=== PATIENT | female | born 1965 | race Hispanic/Latino ===

== ENCOUNTER 2019-11-08 08:39 | Emergency (ER) | payer SELFPAY ==
[2019-11-08] MEDS ORDERED: ONDANSETRON 4 MG (ODT) TAB ONE (09:34)
[2019-11-08] MEDS ORDERED: HYDROCODONE/APAP 5/325 MG TAB ONE (09:34)
[2019-11-08] MEDS ORDERED: TETANUS & DIPHTHERIA TOX,ADULT 0.5 ML VIAL ONE (09:35)
[2019-11-08] MEDS ORDERED: LIDOCAINE 1% 20 ML MDV ONE (10:31)
--- NOTE | 2019-11-08 10:31 | RAD REPORT ---
EXAM DESCRIPTION: US - Extremity Nonvascular Complete - 11/08/2019 10:00 am CLINICAL HISTORY: abscess eval depth;Swelling COMPARISON: No comparisons FINDINGS: Sonographic evaluation was performed of a superficial area of pain and swelling in the rig ht abdomen. Immediately deep to the skin surface there is a 3.5 x 1.9 x 3.6 centimeter heterogeneous hypoechoic c ollection. Small abscess would be most likely given the history. IMPRESSION: A 3.6 centimeter oval hypoechoic collection is present immediately deep to the skin surf matt at the area of concern. Small abscess is the favored diagnosis.
[2019-11-08] MEDS ORDERED: LIDOCAINE 1% MPF 30 ML VIAL ONE (10:37)
[2019-11-08] MEDS ORDERED: FENTANYL CITR 100 MCG/2 ML ONE (10:42)
--- NOTE | 2019-11-08 10:43 | EDPHYS ---
Physician Documentation [facility] Name: Linda Gonzalez Age: 54 yrs Sex: Female : 1965 Arrival Date: 11/08/2019 Time: 08:40 Bed 8 Private MD: ED Physician Servando Garrison HPI: 11/07 09:14 This 54 yrs old Female presents to ER via Ambulatory with complaints of Insect snw Bite. 09:14 Onset: The symptoms/episode began/occurred suddenly, 3 day(s) ago, and became snw persistent. The patient has not experienced similar symptoms in the past. The patient has not recently seen a physician, and does not have an established primary care provider. pt states she thought she was bitten by an insect, area to right lower abdomen with erythema, induration, fluctuant, necrotic center post bumping area on cabinet. Historical: - Allergies: 09:10 No Known Allergies; iw - Home Meds: 09:10 None [Active]; iw - PMHx: 09:10 None; iw - PSHx: 09:10 Cholecystectomy; iw - Immunization history:: Adult Immunizations not up to date, Last tetanus immunization: unknown. - Social history:: Smoking status: Patient reports the use of cigarette tobacco products, smokes one-half pack cigarettes per day. ROS: 09:13 Constitutional: Negative for fever, chills, and weight loss, Eyes: Negative for injury, snw pain, redness, and discharge, ENT: Negative for injury, pain, and discharge, Neck: Negative for injury, pain, and swelling, Cardiovascular: Negative for chest pain, palpitations, and edema, Respiratory: Negative for shortness of breath, cough, wheezing, and pleuritic chest pain, Back: Negative for injury and pain, : Negative for injury, bleeding, discharge, and swelling, MS/Extremity: Negative for injury and deformity, Skin: Negative for injury, rash, and discoloration, Neuro: Negative for headache, weakness, numbness, tingling, and seizure, Psych: Negative for depression, anxiety, suicide ideation, homicidal ideation, and hallucinations. 09:13 Abdomen/GI: Positive for of the right lower quadrant, "insect bite". Exam: 09:12 Constitutional: This is a well developed, well nourished patient who is awake, alert, snw and in no acute distress. Head/Face: Normocephalic, atraumatic. Eyes: Pupils equal round and reactive to light, extra-ocular motions intact. Lids and lashes normal. Conjunctiva and sclera are non-icteric and not injected. Cornea within normal limits. Periorbital areas with no swelling, redness, or edema. ENT: Nares patent. No nasal discharge, no septal abnormalities noted. Tympanic membranes are normal and external auditory canals are clear. Oropharynx with no redness, swelling, or masses, exudates, or evidence of obstruction, uvula midline. Mucous membranes moist. Neck: Trachea midline, no thyromegaly or masses palpated, and no cervical lymphadenopathy. Supple, full range of motion without nuchal rigidity, or vertebral point tenderness. No Meningismus. Chest/axilla: Normal chest wall appearance and motion. Nontender with no deformity. No lesions are appreciated. Cardiovascular: Regular rate and rhythm with a normal S1 and S2. No gallops, murmurs, or rubs. Normal PMI, no JVD. No pulse deficits. Respiratory: Lungs have equal breath sounds bilaterally, clear to auscultation and percussion. No rales, rhonchi or wheezes noted. No increased work of breathing, no retractions or nasal flaring. Abdomen/GI: Soft, non-tender, with normal bowel sounds. No distension or tympany. No guarding or rebound. No evidence of tenderness throughout. Back: No spinal tenderness. No costovertebral tenderness. Full range of motion. MS/ Extremity: Pulses equal, no cyanosis. Neurovascular intact. Full, normal range of motion. Neuro: Awake and alert, GCS 15, oriented to person, place, time, and situation. Cranial nerves II-XII grossly intact. Motor strength 5/5 in all extremities. Sensory grossly intact. Cerebellar exam normal. Normal gait. Psych: Awake, alert, with orientation to person, place and time. Behavior, mood, and affect are within normal limits. 09:12 Skin: Appearance: normal except for affected area, lesion(s), noted, and can be described as erythematous, necrotic, raised, tender, located on the right lower quadrant. Vital Signs: 09:08 BP 161 / 94; Pulse 75; Resp 16 S; Temp 98.5(TE); Pulse Ox 98% on R/A; Weight 68.04 kg; iw Height 5 ft. 2 in. (157.48 cm); Pain 6/10; 11:00 BP 147 / 91; Pulse 67; Resp 15; Pulse Ox 99% ; jl7 09:08 Body Mass Index 27.44 (68.04 kg, 157.48 cm) iw Procedures: 10:45 I \\T\\ D: Incision and drainage was performed for an abscess of the right abdomen Prepped snw with elizabeth. Anesthetized with 7 ml's 1% Lidocaine. Incised with #11 blade. Drained large amount purulent fluid. serosanguinous fluid. Loculations removed. Abscess cavity explored. Packed with iodoform gauze, Dressing: sterile 4x4 gauze, the patient tolerated the procedure well. MDM: 08:58 Patient medically screened. snw 10:45 Data reviewed: vital signs, nurses notes. Data interpreted: Pulse oximetry: on room air snw is 98 %. Interpretation: normal. Counseling: I had a detailed discussion with the patient and/or guardian regarding: the historical points, exam findings, and any diagnostic results supporting the discharge/admit diagnosis, the need for outpatient follow up, to return to the emergency department if symptoms worsen or persist or if there are any questions or concerns that arise at home. Response to treatment: the patient's symptoms have markedly improved after treatment. Special discussion: I have referred the patient to see his PCP for further evaluation of high blood pressure. I discussed in detail with the patient the higher chance of wound infection based on his presenting history. Based on the history and exam findings, there is no indication for further emergent testing or inpatient evaluation. I discussed with the patient/guardian the need to see the primary care provider for further evaluation of the symptoms. 11/07 09:31 Order name: Extremity Nonvascular Complete; Complete Time: 10:39 EDMS 11/07 10:11 Order name: Suture Tray Setup; Complete Time: 10:23 snw Administered Medications: :25 Drug: Clindamycin 300 mg Route: PO; aa5 11:03 Follow up: Response: No adverse reaction : Drug: [place] 5 mg-325 mg 1 tabs Route: PO; aa5 10:40 Follow up: Response: No adverse reaction; Pain is unchanged, physician notified jl7 09:25 Drug: Tetanus-Diphtheria Toxoid Adult 0.5 ml {Orthotic Technician: [employer]. Exp: aa5 04/10/2022. Lot #: [id number]. } Route: IM; Site: right deltoid; 11:03 Follow up: Response: No adverse reaction 09:25 Drug: Zofran (Ondansetron) 4 mg Route: PO; aa5 11:04 Follow up: Response: No adverse reaction 10:25 Drug: Lidocaine (1 %) 1 vials {Note: administered by JENNIE Groves.} Volume: 20 ml; Route: jl7 Infiltration; 11:05 Follow up: Response: No adverse reaction 10:32 Drug: fentaNYL (PF) 50 mcg Route: IM; Site: left deltoid; 11:05 Follow up: Response: No adverse reaction; Pain is decreased Disposition: 13:46 Co-signature as Attending Physician, Servando Garrison MD. rn Disposition: 11/08/19 10:42 Discharged to Home. Impression: Subcutaneous abscess with overlying cellulitis to right low abdomen. - Condition is Stable. - Discharge Instructions: Skin Abscess, Cellulitis, Adult, Incision and Drainage, VIS, Tetanus, Diphtheria (Td) - [facility], Wound Packing. - Prescriptions for Clindamycin HCl 300 mg Oral Capsule - take 1 capsule by ORAL route every 6 hours for 10 days; 40 capsule. Mobic 7.5 mg Oral Tablet - take 1 tablet by ORAL route once daily take with food; 20 tablet. Tylenol- Codeine #3 300-30 mg Oral Tablet - take 2 tablets by ORAL route every 6 hours As needed; 20 tablet. - Work release form, Medication Reconciliation Form, Thank You Letter, Antibiotic Education, Prescription Opioid Use, Family Work Release form. - Follow up: Emergency Department; When: 2 - 3 days; Reason: Recheck today's complaints, Continuance of care, Re-evaluation by your physician. Signatures: Dispatcher [employer] Yaneli Crow, ADRIA CASE CONSULTANT-Csnw Pema David, RN Servando Frias MD MD rn Calderon, Audri, RN RN aa5 Yolette Jackson RN RN jl7 Corrections: (The following items were deleted from the chart) 09:31 09:13 Extrmty Nonvasular Limited+US.RAD.BRZ ordered. EDMO EDMS 11:09 10:42 11/08/2019 10:42 Discharged to Home. Impression: Subcutaneous abscess with jl7 overlying cellulitis to right low abdomen. Condition is Stable. Forms are Medication Reconciliation Form, Thank You Letter, Antibiotic Education, Prescription Opioid Use. Follow up: Emergency Department; When: 2 - 3 days; Reason: Recheck today's complaints, Continuance of care, Re-evaluation by your physician. w
--- NOTE | 2019-11-08 10:43 | ER ---
Nurse's Notes [facility] Name: Linda Gonzalez Age: 54 yrs Sex: Female : 1965 Arrival Date: 11/08/2019 Time: 08:40 Bed 8 Private MD: Diagnosis: Subcutaneous abscess with overlying cellulitis to right low abdomen Presentation: 11/07 09:00 Chief complaint: Patient states: abscess to RLQ X 3 days, she bumped it yesterday and iw it turned black. Coronavirus screen: At this time, the client does not indicate any symptoms associated with coronavirus-19. Ebola Screen: Patient negative for fever greater than or equal to 101.5 degrees Fahrenheit, and additional compatible Ebola Virus Disease symptoms Patient denies exposure to infectious person. Patient denies travel to an Ebola-affected area in the 21 days before illness onset. No symptoms or risks identified at this time. Initial Sepsis Screen: Does the patient meet any 2 criteria? No. Patient's initial sepsis screen is negative. Does the patient have a suspected source of infection?. Risk Assessment: Do you want to hurt yourself or someone else? Patient reports no desire to harm self or others. Onset of symptoms was November 06, 2019. 09:00 Method Of Arrival: Ambulatory iw 09:00 Acuity: EDSON 3 iw Historical: - Allergies: 09:10 No Known Allergies; iw - Home Meds: 09:10 None [Active]; iw - PMHx: 09:10 None; iw - PSHx: 09:10 Cholecystectomy; iw - Immunization history:: Adult Immunizations not up to date, Last tetanus immunization: unknown. - Social history:: Smoking status: Patient reports the use of cigarette tobacco products, smokes one-half pack cigarettes per day. Screenin:00 Abuse screen: Denies threats or abuse. Denies injuries from another. Nutritional jl7 screening: No deficits noted. Tuberculosis screening: No symptoms or risk factors identified. Fall Risk None identified. Assessment: 09:30 General: Appears in no apparent distress. uncomfortable, Behavior is cooperative, jl7 appropriate for age, anxious. Pain: Complains of pain in right lower quadrant Pain currently is 6 out of 10 on a pain scale. Neuro: Level of Consciousness is awake, alert, obeys commands, Oriented to person, place, time, situation. Cardiovascular: Patient's skin is warm and dry. Respiratory: Airway is patent Respiratory effort is even, unlabored, Respiratory pattern is regular, symmetrical. Derm: Skin abscess noted Skin is dry, Skin is pink, warm \T\ dry. Abscess located on right lower quadrant is golf ball sized, is hot to touch, is red, is raised. Vital Signs: 09:08 BP 161 / 94; Pulse 75; Resp 16 S; Temp 98.5(TE); Pulse Ox 98% on R/A; Weight 68.04 kg; iw Height 5 ft. 2 in. (157.48 cm); Pain 6/10; 11:00 BP 147 / 91; Pulse 67; Resp 15; Pulse Ox 99% ; jl7 09:08 Body Mass Index 27.44 (68.04 kg, 157.48 cm) iw ED Course: 08:40 Patient arrived in ED. ag5 08:58 [facility]eli Bowman [facility]-C [facility]. snw 08:58 Servando Garrison MD is Attending Physician. snw 09:08 Triage completed. iw 09:10 Arm band placed on. iw 09:30 Patient has correct armband on for positive identification. Placed in gown. Bed in low jl7 position. Call light in reach. Side rails up X 1. 10:00 Extremity Nonvascular Complete In Process Unspecified. EDMS 10:30 Assist provider with I \T\ D: of an abscess on right LQ Set up I\T\D tray. Performed by jl 7 Yaneli COVINGTON Wound packed. iodoform gauze, Dressing with ABD pad, Patient tolerated poorly. 10:30 Patient did not have IV access during this emergency room visit. jl7 11:09 Primary Nurse role handed off by Agnes Anguiano, RN jl7 11:09 Yolette Jackson, MARCELA is Primary Nurse. jl7 Administered Medications: 09:25 Drug: Clindamycin 300 mg Route: PO; aa5 11:03 Follow up: Response: No adverse reaction jl7 09:25 Drug: [place] 5 mg-325 mg 1 tabs Route: PO; aa5 10:40 Follow up: Response: No adverse reaction; Pain is unchanged, physician notified jl7 09:25 Drug: Tetanus-Diphtheria Toxoid Adult 0.5 ml {Transformation Manager: [employer]. Exp: aa5 04/10/2022. Lot #: [id number]. } Route: IM; Site: right deltoid; 11:03 Follow up: Response: No adverse reaction jl7 09:25 Drug: Zofran (Ondansetron) 4 mg Route: PO; aa5 11:04 Follow up: Response: No adverse reaction jl7 10:25 Drug: Lidocaine (1 %) 1 vials {Note: administered by JENNIE Groves.} Volume: 20 ml; Route: jl7 Infiltration; 11:05 Follow up: Response: No adverse reaction jl7 10:32 Drug: fentaNYL (PF) 50 mcg Route: IM; Site: left deltoid; jl7 11:05 Follow up: Response: No adverse reaction; Pain is decreased jl7 Outcome: 10:42 Discharge ordered by . fide 11:09 Discharged to home ambulatory. jl7 11:09 Condition: stable 11:09 Discharge instructions given to patient, family, Instructed on discharge instructions, follow up and referral plans. medication usage, Demonstrated understanding of instructions, follow-up care, medications, Prescriptions given X 3. 11:09 Patient left the ED. jl Signatures: Dispatcher [employer] EDMS Yaneli Bowman, CURRICULUM COUNSELOR-C CURRICULUM COUNSELOR-Csnw Pema David RN RN iw Agnes Anguiano, RN RN nancy5 Yolette Jackson RN RN jl7 Anitra Castorena 5 Corrections: (The following items were deleted from the chart) 11:04 10:40 fentaNYL (PF) 50 mcg IM in left deltoid jl7 jl7 12:40 08:52 Agnes Anguiano, RN is Primary Nurse. [email or web address] [email or web address]
[2019-11-08 11:15] VITALS: TEMP 98.5
[2019-11-08 11:17] VITALS: BP 147/91; O2SAT 99
== END 2019-11-08 11:09 | disposition home or self-care (01) ==
LOC: ER 08:39
PROC: 0J980ZZ Drainage of Abdomen Subcutaneous Tissue and Fascia, Open Approach (ICD-10-PCS; principal; 2019-11-08)
DX: L02.211 Cutaneous abscess of abdominal wall (principal); L03.311 Cellulitis of abdominal wall; F17.210 Nicotine dependence, cigarettes, uncomplicated; Z23 Encounter for immunization
CPT/HCPCS: 76881; 90471; 90714; 96372; 99284; J3010

== ENCOUNTER 2021-10-09 12:52 | Emergency (ER) | payer SELFPAY ==
[2021-10-09 13:32] LABS: Urine Blood 2+ (Negative); Urine Glucose Negative (Negative); Urine Protein 1+ (Negative)
[2021-10-09 13:48] LABS: Urine RBC 21-50 /HPF (None Seen); Urine WBC Clump Occasional /HPF (None Seen)
--- NOTE | 2021-10-09 14:19 | EDPHYS ---
Physician Documentation [facility] Name: Linda Gonzalez Age: 56 yrs Sex: Female : 1965 Arrival Date: 10/09/2021 Time: 12:53 Bed Waiting Private MD: ED Physician Duy Person HPI: 10/09 14:55 This 56 yrs old Female presents to ER via Ambulatory with complaints of kb Urinary Problem. 14:55 The patient presents with urinary symptoms, dysuria, frequency. Onset: The kb symptoms/episode began/occurred 3 day(s) ago. Modifying factors: The symptoms are alleviated by nothing, the symptoms are aggravated by urinating. Associated signs and symptoms: Pertinent positives: dysuria, urinary frequency. Severity of symptoms: At their worst the symptoms were moderate, in the emergency department the symptoms are unchanged. The patient has experienced similar episodes in the past, a few times. The patient has not recently seen a physician. Patient reports dark urine, burning with urination and urinary frequency that started 3 days ago. Denies fever. Historical: - Allergies: 13:21 No Known Allergies; iw - Home Meds: 13:21 None [Active]; iw - PMHx: 13:21 None; iw - PSHx: 13:21 None; iw - Immunization history:: Adult Immunizations up to date, Client reports having NOT received the Covid vaccine. - Social history:: Smoking status: Patient reports the use of cigarette tobacco products, smokes one-half pack cigarettes per day. ROS: 14:00 Constitutional: Negative for fever, chills, and weight loss. kb 14:55 : Positive for urinary symptoms, urinary frequency, burning with urination. kb 14:55 All other systems are negative. Exam: 14:55 Constitutional: This is a well developed, well nourished patient who is awake, alert, kb and in no acute distress. Head/Face: Normocephalic, atraumatic. ENT: Moist Mucous membranes Cardiovascular: Regular rate and rhythm with a normal S1 and S2. No gallops, murmurs, or rubs. No pulse deficits. Respiratory: Respirations even and unlabored. No increased work of breathing. Talking in full sentences Abdomen/GI: Soft, non-tender. No distention Back: No spinal tenderness. No costovertebral tenderness. Full range of motion. Skin: Warm, dry with normal turgor. Normal color. MS/ Extremity: Pulses equal, no cyanosis. Neurovascular intact. Full, normal range of motion. Neuro: Awake and alert, GCS 15, oriented to person, place, time, and situation. Moves all extremities. Normal gait. Psych: Awake, alert, with orientation to person, place and time. Behavior, mood, and affect are within normal limits. Vital Signs: 13:19 BP 166 / 89; Pulse 77; Resp 16; Temp 98.0(O); Pulse Ox 100% on R/A; Weight 68.04 kg iw (R); Height 5 ft. 3 in. (160.02 cm); Pain 0/10; 13:19 Body Mass Index 26.57 (68.04 kg, 160.02 cm) iw MDM: 13:21 Patient medically screened. kb 13:59 Data reviewed: vital signs, nurses notes. Data interpreted: Pulse oximetry: on room air kb is 100 %. Interpretation: normal. Counseling: I had a detailed discussion with the patient and/or guardian regarding: the historical points, exam findings, and any diagnostic results supporting the discharge/admit diagnosis, lab results, the need for outpatient follow up, a family practitioner, to return to the emergency department if symptoms worsen or persist or if there are any questions or concerns that arise at home. 10/09 13:21 Order name: Urine Microscopic Only; Complete Time: 13:52 kb 10/09 13:32 Order name: Urine Dipstick-Ancillary; Complete Time: 13:33 EDMS 10/09 13:21 Order name: Urine Dipstick-Ancillary (obtain specimen); Complete Time: 13:32 kb 10/09 13:52 Order name: Urine Culture EDMS Administered Medications: 14:38 Drug: Macrobid (nitrofurantoin) 100 mg Route: PO; iw 14:38 Follow up: Response: No adverse reaction iw Disposition: 16:33 Co-signature as Attending Physician, Duy Person MD I agree with the assessment and kdr plan of care. Disposition Summary: 10/09/21 14:18 Discharge Ordered Location: Home kb Condition: Stable kb Diagnosis - UTI/ Urinary tract infection, site not specified kb Followup: kb - With: Emergency Department - When: As needed - Reason: Worsening of condition Followup: kb - With: Private Physician - When: 2 - 3 days - Reason: Recheck today's complaints, Continuance of care, Re-evaluation by your physician Discharge Instructions: - Discharge Summary Sheet kb - Urinary Tract Infection, Adult, [id number] kb Forms: - Medication Reconciliation Form kb - Thank You Letter kb - Antibiotic Education kb - Prescription Opioid Use kb Prescriptions: - Macrobid 100 mg Oral Capsule - take 1 capsule by ORAL route every 12 hours for 10 days; 20 capsule; Refills: kb 0, Product Selection Permitted Signatures: Dispatcher [employer] EDMS Kelly Quick, CONCRETE POINTER-C Duy Barron MD MD kdr Williams, Irene RN RN iw
--- NOTE | 2021-10-09 14:19 | ER ---
Nurse's Notes [facility] Name: Linda Gonzalez Age: 56 yrs Sex: Female : 1965 Arrival Date: 10/09/2021 Time: 12:53 Bed Waiting Private MD: Diagnosis: UTI/ Urinary tract infection, site not specified Presentation: 10/09 13:19 Chief complaint: Patient states: I have a UTI. I have been having dark urine and iw burning for a few days. I was going to [facility] an appointment at [facility] [place] but they didn't have any openings. Coronavirus screen: At this time, the client does not indicate any symptoms associated with coronavirus-19. Ebola Screen: No symptoms or risks identified at this time. Initial Sepsis Screen: Does the patient meet any 2 criteria? No. Patient's initial sepsis screen is negative. Does the patient have a suspected source of infection? No. Patient's initial sepsis screen is negative. Risk Assessment: Do you want to hurt yourself or someone else? Patient reports no desire to harm self or others. Onset of symptoms was October 07, 2021. 13:19 Method Of Arrival: Ambulatory iw 13:19 Acuity: EDSON 4 iw Triage Assessment: 13:21 General: Appears in no apparent distress. comfortable, Behavior is calm, cooperative, iw appropriate for age. Pain: Denies pain. EENT: No deficits noted. No signs and/or symptoms were reported regarding the EENT system. Neuro: No deficits noted. Cardiovascular: No deficits noted. Respiratory: No deficits noted. GI: No deficits noted. No signs and/or symptoms were reported involving the gastrointestinal system. : Reports burning with urination, urinary frequency. Derm: No deficits noted. No signs and/or symptoms reported regarding the dermatologic system. Musculoskeletal: No deficits noted. No signs and/or symptoms reported regarding the musculoskeletal system. Historical: - Allergies: 13:21 No Known Allergies; iw - Home Meds: 13:21 None [Active]; iw - PMHx: 13:21 None; iw - PSHx: 13:21 None; iw - Immunization history:: Adult Immunizations up to date, Client reports having NOT received the Covid vaccine. - Social history:: Smoking status: Patient reports the use of cigarette tobacco products, smokes one-half pack cigarettes per day. Screenin:38 Abuse screen: Denies threats or abuse. Nutritional screening: No deficits noted. iw Tuberculosis screening: No symptoms or risk factors identified. Fall Risk None identified. Assessment: 14:38 Reassessment: No changes from previously documented assessment. Patient and/or family iw updated on plan of care and expected duration. Pain level reassessed. Patient is alert, oriented x 3, equal unlabored respirations, skin warm/dry/pink. Vital Signs: 13:19 BP 166 / 89; Pulse 77; Resp 16; Temp 98.0(O); Pulse Ox 100% on R/A; Weight 68.04 kg iw (R); Height 5 ft. 3 in. (160.02 cm); Pain 0/10; 13:19 Body Mass Index 26.57 (68.04 kg, 160.02 cm) iw ED Course: 12:53 Patient arrived in ED. am2 13:13 Kelly Quick FNP-C is [facility]. kb 13:13 Duy Person MD is Attending Physician. kb 13:21 Triage completed. iw 13:21 Arm band placed on right wrist. iw 13:33 Urine Microscopic Only Sent. em1 14:38 Patient has correct armband on for positive identification. iw 14:38 No provider procedures requiring assistance completed. Urine collected: clean catch iw specimen, cloudy. Patient did not have IV access during this emergency room visit. Administered Medications: 14:38 Drug: Macrobid (nitrofurantoin) 100 mg Route: PO; iw 14:38 Follow up: Response: No adverse reaction iw Medication: 14:38 VIS not applicable for this client. iw Outcome: 14:18 Discharge ordered by . kb 14:38 Discharged to home ambulatory. iw 14:38 Condition: good 14:38 Discharge instructions given to patient, Instructed on discharge instructions, follow up and referral plans. medication usage, Demonstrated understanding of instructions, follow-up care, medications, Prescriptions given X 1. 14:39 Patient left the ED. iw Signatures: Kelly Quick FNP-C FNP-Pema Bennett RN RN iw Milton Henry em1 Eileen Boucher am2
[2021-10-09] MEDS ORDERED: NITROFURAN MACRO 100 MG CAP PO ONE (14:47)
[2021-10-09 15:54] VITALS: BP 166/89; TEMP 98; O2SAT 100
== END 2021-10-09 14:39 | disposition home or self-care (01) ==
LOC: ER 12:52
DX: N39.0 Urinary tract infection, site not specified (principal); F17.210 Nicotine dependence, cigarettes, uncomplicated
CPT/HCPCS: 81003; 81015; 87086; 87088; 99283

== ENCOUNTER 2022-01-13 07:32 | Observation (INO) | payer SELFPAY ==
--- NOTE | 2022-01-13 08:05 | RAD REPORT ---
EXAM DESCRIPTION: CT - Ct Stroke Brain Wo Cont - 01/13/2022 7:55 am CLINICAL HISTORY: facial droop COMPARISON: No comparisons TECHNIQUE: Axial 5 millimeter thick images of the head were obtained without IV contrast. All CT scans are performed using dose optimization technique as appropriate and may include automated exposure control or mA/KV adjustment according to patient size. FINDINGS: No intracranial hemorrhage, mass, or cerebral edema. No acute infarction identifiable. No extra-axial fluid collections. Rico matter-white matter differentiation is preserved.Ventricles are normal. Cerebellar tonsils are low lying as a normal variant. No globe or orbital content abnormality . Visualized portions of the mastoid air cells, paranasal sinuses, and orbits are unremarkable. Findings were telephoned to Dr. Srinivasan 0800 hours. IMPRESSION: No CT evidence of acute intracranial process.
[2022-01-13 08:14] LABS: Absolute Lymphocytes (CBC) 1.8 K/uL (0.7-4.9); Hematocrit 42.7 % (36.0-45.0); Lymphocytes % 25.1 % (15.3-44.8); MCV 88.1 fL (80-100); RBC Red Blood Cell Count 4.84 M/uL (3.86-4.86)
[2022-01-13 08:17] LABS: Protime INR 1.09
--- NOTE | 2022-01-13 08:39 | ER ---
Nurse's Notes [facility] Name: Linda Gonzalez Age: 56 yrs Sex: Female : 1965 Arrival Date: 01/13/2022 Time: 07:39 Bed 6 Private MD: Diagnosis: Transient cerebral ischemic attack, unspecified;Facial weakness;Hyperglycemia, unspecified Presentation: 01/13 07:39 Chief complaint: EMS states: Pt reports R sided facial droop when she woke up at 0600 ph this morning, went to bed last night at 9 pm, no other deficits, equal uat tester and no weakness, facial droop resolved prior to arrival at ED, VSS for EMS, FSBG 230. Coronavirus screen: Vaccine status: Patient reports being unvaccinated. Ebola Screen: No symptoms or risks identified at this time. No acute neurological deficit is noted. The patients blood glucose was checked prior to arriving to the hospital and was found to be hyperglycemic. Initial Sepsis Screen: Does the patient meet any 2 criteria? No. Patient's initial sepsis screen is negative. Does the patient have a suspected source of infection? No. Patient's initial sepsis screen is negative. Risk Assessment: Do you want to hurt yourself or someone else? Patient reports no desire to harm self or others. Onset of symptoms was January 13, 2022. 07:39 Method Of Arrival: EMS: [facility] 07:39 Acuity: EDSON 3 ph Triage Assessment: 07:42 The onset of the patients symptoms was at an unknown time. General: Appears in no ph apparent distress. Behavior is calm, cooperative, appropriate for age. Pain: Denies pain. Neuro: Level of Consciousness is awake, alert, obeys commands, Oriented to person, place, time, situation, Sample Grader are equal bilaterally Moves all extremities. Speech is normal, Facial symmetry appears normal, Pupils are PERRLA, Intact. 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 Cardiovascular: Capillary refill < 3 seconds in bilateral fingers Patient's skin is warm and dry. Rhythm is sinus rhythm. Respiratory: Airway is patent Respiratory effort is even, unlabored. GI: No signs and/or symptoms were reported involving the gastrointestinal system. Derm: Skin is healthy with good turgor, Skin is pink, warm \T\ dry. Musculoskeletal: Circulation, motion, and sensation intact. Range of motion: intact in all extremities. 07:42 The onset of the patients symptoms was. ph Stroke Activation: Symptom onset > 6 hours Physician: Stroke Attending; Name: ; Notified At: ; Arrived At: Physician: Chief Stroke Resident; Name: ; Notified At: ; Arrived At: Physician: Stroke Resident; Name: ; Notified At: ; Arrived At: Physician: ED Attending; Name: ; Notified At: ; Arrived At: Physician: ED Resident; Name: ; Notified At: ; Arrived At: Historical: - Allergies: 07:42 No Known Allergies; ph - Home Meds: 07:42 None [Active]; ph - PMHx: 07:42 None; ph - Immunization history:: Adult Immunizations unknown. - Social history:: Smoking status: Patient reports the use of cigarette tobacco products, smokes one-half pack cigarettes per day. - Family history:: not pertinent. - Hospitalizations: : No recent hospitalization is reported. Screenin:46 Abuse screen: Denies threats or abuse. Denies injuries from another. Nutritional ph screening: No deficits noted. Tuberculosis screening: No symptoms or risk factors identified. Fall Risk None identified. Assessment: 07:45 VAN Scoring: Arm Drift: Patients demonstrates NO arm weakness. Patient is VAN Negative. ph TNKase (Tenecteplase) Screening: Contraindications: Patient reports onset of signs and symptoms of stroke greater than 6 hours ago:. General: SEE TRIAGE ASSESSMENT. 08:29 Reassessment: Patient appears in no apparent distress at this time. Patient and/or ph family updated on plan of care and expected duration. Pain level reassessed. Patient is alert, oriented x 3, equal unlabored respirations, skin warm/dry/pink. Dr Garrison at bedside to speak w/ pt about results. 08:45 Patient has been NPO before screening. The patient is alert, and able to follow ph commands. The patient does not exhibit slurred or garbled speech. The patient is not exhibiting difficulty speaking. The patient does not exhibit difficulty understanding words. The patient is able to swallow own secretions with no drooling or need for suction. Patient tolerated one teaspoon of water. No drooling, immediate coughing, gurgling, or clearing of the throat was noted. The patient tolerated 90mL of water. No drooling, immediate coughing, gurgling, or clearing of the throat was noted. The patient passed the bedside swallow screening. Oral medications may be given as ordered. Contact Physician for further diet orders. Provider notified of bedside swallow screening results: Servando Garrison MD. 09:45 Reassessment: Patient appears in no apparent distress at this time. Patient and/or ph family updated on plan of care and expected duration. Pain level reassessed. Patient is alert, oriented x 3, equal unlabored respirations, skin warm/dry/pink. 10:49 Reassessment: Patient appears in no apparent distress at this time. Patient and/or ph family updated on plan of care and expected duration. Pain level reassessed. Patient is alert, oriented x 3, equal unlabored respirations, skin warm/dry/pink. 11:25 Reassessment: Patient appears in no apparent distress at this time. Patient and/or ph family updated on plan of care and expected duration. Pain level reassessed. Patient is alert, oriented x 3, equal unlabored respirations, skin warm/dry/pink. Attempted to call report, was told that they did not know that they were getting anew pt and charge nurse was at a meeting, will call back. 12:35 Reassessment: Patient appears in no apparent distress at this time. Patient and/or ph family updated on plan of care and expected duration. Pain level reassessed. Patient is alert, oriented x 3, equal unlabored respirations, skin warm/dry/pink. report called to Mary MEDRANO. Vital Signs: 07:39 BP 153 / 72; Pulse 69; Resp 18; Temp 97.8; Pulse Ox 100% on R/A; Weight 68.04 kg; ph Height 5 ft. 2 in. (157.48 cm); Pain 0/10; 09:17 BP 163 / 83; Pulse 58; Resp 18; Pulse Ox 99% on R/A; ph 10:00 BP 145 / 73; Pulse 67; Resp 18; Pulse Ox 98% on R/A; ph 10:49 BP 127 / 82; Pulse 58; Resp 18; Pulse Ox 99% on R/A; ph 12:00 BP 136 / 87; Pulse 61; Resp 18; Temp 97.9; Pulse Ox 99% on R/A; ph 07:39 Body Mass Index 27.44 (68.04 kg, 157.48 cm) ph NIH Stroke Scale Scores: 07:45 NIHSS Score: 1 ph ED Course: 07:39 Patient arrived in ED. ph 07:42 Triage completed. ph 07:43 Servando Garrison MD is Attending Physician. snw 07:45 Arm band placed on Patient placed in an exam room, on a stretcher, on drive in teller, ph on pulse oximetry. 07:46 Patient has correct armband on for positive identification. Placed in gown. Bed in low ph position. Call light in reach. Side rails up X2. Client placed on continuous cardiac and pulse oximetry monitoring. NIBP monitoring applied. Door closed. Noise minimized. Warm blanket given. 07:47 Rea Almendarez RN is Primary Nurse. ph 07:57 CT Stroke Brain w/o Contrast In Process Unspecified. EDMS 08:05 Maintain EMS IV. Dressing intact. Good blood return noted. Site clean \T\ dry. Gauge \T\ ph site: 20 LAC. 08:36 Stroke CXR 1 View In Process Unspecified. EDMS 08:40 Bear Garrison MD is Hospitalizing Provider. rn 10:50 No provider procedures requiring assistance completed. Patient admitted, IV remains in ph place. Administered Medications: 08:50 Drug: Aspirin Chewable Tablet 324 mg Route: PO; ph 09:00 Follow up: Response: No adverse reaction ph 08:50 Drug: foLIC Acid 1 mg Route: IVPB; Site: left antecubital; ph 09:00 Follow up: Response: No adverse reaction; IV Status: Completed infusion ph Medication: 07:46 VIS not applicable for this client. ph Outcome: 08:39 Discharge ordered by . rn 08:41 Decision to Hospitalize by Provider. rn 12:44 Patient left the ED. ph 12:44 Admitted to Tele accompanied by tech, family with patient, via wheelchair. ph 12:44 Condition: stable 12:44 Instructed on the need for admit. NIH Stroke Scale - NIH Stroke Score Date: 01/13/2022 Time: 07:45 Total Score = 1 1a. Level of Consciousness (LOC) - 0(Alert) 1b. Level of Consciousness (LOC) (Month \T\ Age) - 0(Both) 1c. LOC Commands (Open \T\ Closes Eyes/Info Analyst) - 0(Both) 2. Best Gaze (Lateral Gaze Paresis) - 0(Normal) 3. Visual Field Loss - 0(No visual loss) 4. Facial Palsy - 0(Normal) 5a. Left Arm: Motor (10-second hold) - 0(No drift) 5b. Right Arm: Motor (10-second hold) - 0(No drift) 6a. Left Leg: Motor (5-second hold - always test supine) - 0(No drift) 6b. Right Leg: Motor (5-second hold - always test supine) - 0(No drift) 7. Limb Ataxia (finger/nose \T\ heel/best - test with eyes open) - 0(Absent) 8. Sensory Loss (pinprick arms/legs/face) - 1(Mild to moderate loss) 9. Best Language: Aphasia (description/naming/reading) - 0(No aphasia) 10. Dysarthria (speech clarity - read or repeat words) - 0(Normal) 11. Extinction and Inattention (visual/tactile/auditory/spatial/personal) - 0(No abnormality) Initials: ph Signatures: Dispatcher [employer] EDMS Yaneli Bowman, CART PUSHER-C CART PUSHER-Csnw Servando Garrison MD MD rn Hall, Patricia, RN RN ph Corrections: (The following items were deleted from the chart) 09:17 09:17 Aspirin Chewable Tablet 324 mg PO ph ph
--- NOTE | 2022-01-13 08:40 | EDPHYS ---
Physician Documentation [facility] Name: Linda Gonzalez Age: 56 yrs Sex: Female : 1965 Arrival Date: 01/13/2022 Time: 07:39 Bed 6 Private MD: ED Physician Servando Garrison HPI: 01/13 07:51 This 56 yrs old Female presents to ER via EMS with complaints of Facial Droop. rn 07:51 The patient presents to the emergency department with weakness of the right side of the rn face, that is moderate. Onset: The symptoms/episode began/occurred this morning. Associated signs and symptoms: Pertinent negatives: altered mental status, fever, headache, neck stiffness, seizure, syncope, blurred vision, double vision, visual field changes, loss of vision. Severity of symptoms: At their worst the symptoms were moderate in the emergency department the symptoms have improved. Current symptoms: Currently, the patient is not experiencing any symptoms. The patient has not experienced similar symptoms in the past. The patient has not recently seen a physician. Pt reports went to bed last night around 2100, was fine, woke up this morning with right lower facial droop, no other focal weakness or paresthesias. Pt reports feels like is back to normal now, symptoms were present for about 1 hour. No head injury. No medication changes. . Historical: - Allergies: 07:42 No Known Allergies; ph - Home Meds: 07:42 None [Active]; ph - PMHx: 07:42 None; ph - Immunization history:: Adult Immunizations unknown. - Social history:: Smoking status: Patient reports the use of cigarette tobacco products, smokes one-half pack cigarettes per day. - Family history:: not pertinent. - Hospitalizations: : No recent hospitalization is reported. ROS: 07:51 Constitutional: Negative for fever, chills, and weight loss, Eyes: Negative for injury, rn pain, redness, and discharge, Neck: Negative for injury, pain, and swelling, Cardiovascular: Negative for chest pain, palpitations, and edema, Respiratory: Negative for shortness of breath, cough, wheezing, and pleuritic chest pain, Abdomen/GI: Negative for abdominal pain, nausea, vomiting, diarrhea, and constipation, Back: Negative for injury and pain, MS/Extremity: Negative for injury and deformity, Skin: Negative for injury, rash, and discoloration, Neuro: Negative for headache, numbness, tingling, and seizure. Exam: 07:51 Constitutional: This is a well developed, well nourished patient who is awake, alert, rn and in no acute distress. Head/Face: Normocephalic, atraumatic. Eyes: Pupils equal round and reactive to light, extra-ocular motions intact. Cardiovascular: Regular rate and rhythm. No pulse deficits. Respiratory: No increased work of breathing, no retractions or nasal flaring. Abdomen/GI: Soft, non-tender Skin: Warm, dry MS/ Extremity: Pulses equal, no cyanosis. Neuro: Awake and alert, GCS 15, oriented to person, place, time, and situation. Cranial nerves II-XII grossly intact. Motor strength 5/5 in all extremities. Sensory grossly intact. Cerebellar exam normal. Vital Signs: 07:39 BP 153 / 72; Pulse 69; Resp 18; Temp 97.8; Pulse Ox 100% on R/A; Weight 68.04 kg; ph Height 5 ft. 2 in. (157.48 cm); Pain 0/10; 09:17 BP 163 / 83; Pulse 58; Resp 18; Pulse Ox 99% on R/A; ph 10:00 BP 145 / 73; Pulse 67; Resp 18; Pulse Ox 98% on R/A; ph 10:49 BP 127 / 82; Pulse 58; Resp 18; Pulse Ox 99% on R/A; ph 12:00 BP 136 / 87; Pulse 61; Resp 18; Temp 97.9; Pulse Ox 99% on R/A; ph 07:39 Body Mass Index 27.44 (68.04 kg, 157.48 cm) ph NIH Stroke Scale Scores: 07:45 NIHSS Score: 1 ph MDM: 07:43 Patient medically screened. snw 08:35 Data reviewed: vital signs, nurses notes, lab test result(s), EKG, radiologic studies, rn CT scan, and as a result, I will admit patient. Counseling: I had a detailed discussion with the patient and/or guardian regarding: the historical points, exam findings, and any diagnostic results supporting the discharge/admit diagnosis, lab results, radiology results, the need for further work-up and treatment in the hospital. Response to treatment: the patient's symptoms have markedly improved after treatment, the patient's symptoms have resolved after treatment, the patient's condition has returned to base line, the patient is now symptom free, and as a result, I will admit patient. Admission orders: after a detailed discussion of the patient's condition and case, the admit orders are written by me. ED course: Pt with TIA, now back to baseline, has never happened before, no previous w/u, no pcp for followup, pt is uncomfortable going home as well as family. Will admit for workup. Also, possibly new diagnosis of diabetes. . 01/13 07:45 Order name: Basic Metabolic Panel; Complete Time: 09:23 rn 01/13 07:45 Order name: CBC with Diff; Complete Time: 08: rn 01/13 07:45 Order name: High Sensitivity Troponin; Complete Time: 09: rn 01/13 07:45 Order name: Protime (+inr); Complete Time: 08: rn 01/13 07:45 Order name: Ptt, Activated; Complete Time: 08: rn 01/13 08:00 Order name: Glucose, Ancillary Testing; Complete Time: 08: [facility] 01/13 07:45 Order name: CT Stroke Brain w/o Contrast; Complete Time: 08: rn 01/13 07:45 Order name: Stroke CXR 1 View; Complete Time: 09:23 rn 01/13 08:34 Order name: SARS RAPID; Complete Time: 09:23 rn 01/13 11:35 Order name: Lipid Profile [facility] 01/13 11:35 Order name: T4 Free [facility] 01/13 11:35 Order name: Thyroid Stimulating Hormone [facility] 01/13 11:56 Order name: US [facility] 01/13 11:56 Order name: Hemoglobin A1c [facility] 01/13 07:45 Order name: EKG; Complete Time: 07:46 rn 01/13 07:45 Order name: Accucheck; Complete Time: 07:47 rn 01/13 07:45 Order name: Cardiac monitoring; Complete Time: 07:47 rn 01/13 07:45 Order name: EKG - Nurse/Tech; Complete Time: 07:47 rn 01/13 07:45 Order name: IV Saline Lock; Complete Time: 07:47 rn 01/13 07:45 Order name: Labs collected and sent; Complete Time: 08:05 rn 01/13 07:45 Order name: NPO; Complete Time: 07:47 rn 01/13 07:45 Order name: O2 Per Protocol; Complete Time: 07:47 rn 01/13 07:45 Order name: O2 Sat Monitoring; Complete Time: 07:47 rn 01/13 07:45 Order name: Stroke Swallow Screen; Complete Time: 09:17 rn 01/13 09:15 Order name: CONS Physician Consult EDMS Administered Medications: 08:50 Drug: Aspirin Chewable Tablet 324 mg Route: PO; ph 09:00 Follow up: Response: No adverse reaction ph 08:50 Drug: foLIC Acid 1 mg Route: IVPB; Site: left antecubital; ph 09:00 Follow up: Response: No adverse reaction; IV Status: Completed infusion ph Disposition Summary: 01/13/22 08:41 Hospitalization Ordered Hospitalization Status: Observation rn Provider: Bear Garrison rn Location: Telemetry/MedSurg (observation)(01/13/22 08:41) rn Condition: Stable(01/13/22 08:41) rn Problem: new(01/13/22 08:41) rn Symptoms: are resolved(01/13/22 08:41) rn Bed/Room Type: Standard rn Room Assignment: [id number](01/13/22 11:05) [email or web address] Diagnosis - Transient cerebral ischemic attack, unspecified(01/13/22 08:41) rn - Facial weakness(01/13/22 08:41) rn - Hyperglycemia, unspecified(01/13/22 08:41) rn Forms: - Medication Reconciliation Form rn - SBAR form rn NIH Stroke Scale - NIH Stroke Score Date: 01/13/2022 Time: 07:45 Total Score = 1 1a. Level of Consciousness (LOC) - 0(Alert) 1b. Level of Consciousness (LOC) (Month \T\ Age) - 0(Both) 1c. LOC Commands (Open \T\ Closes Eyes/Hospice Superintendent) - 0(Both) 2. Best Gaze (Lateral Gaze Paresis) - 0(Normal) 3. Visual Field Loss - 0(No visual loss) 4. Facial Palsy - 0(Normal) 5a. Left Arm: Motor (10-second hold) - 0(No drift) 5b. Right Arm: Motor (10-second hold) - 0(No drift) 6a. Left Leg: Motor (5-second hold - always test supine) - 0(No drift) 6b. Right Leg: Motor (5-second hold - always test supine) - 0(No drift) 7. Limb Ataxia (finger/nose \T\ heel/best - test with eyes open) - 0(Absent) 8. Sensory Loss (pinprick arms/legs/face) - 1(Mild to moderate loss) 9. Best Language: Aphasia (description/naming/reading) - 0(No aphasia) 10. Dysarthria (speech clarity - read or repeat words) - 0(Normal) 11. Extinction and Inattention (visual/tactile/auditory/spatial/personal) - 0(No abnormality) Initials: ph Signatures: Dispatcher [employer] EDMS Yaneli Bowman, OPERATION RESEARCH ANALYST-C OPERATION RESEARCH ANALYST-Csnw Servando Garrison MD MD rn Hall, Patricia, RN RN Viviane Anderson Corrections: (The following items were deleted from the chart) 08:40 08:39 Home rn rn 08:40 08:39 new rn rn 08:40 08:39 are resolved rn rn 08:40 08:39 Stable rn rn 08:40 08:39 Transient cerebral ischemic attack, unspecified rn rn 08:40 08:39 Facial weakness rn rn 08:40 08:39 Hyperglycemia, unspecified rn rn 11:05 08:41 rn [email or web address]
[2022-01-13 08:42] LABS: Potassium 3.7 mmol/L (3.5-5.1); Troponin High Sensitivity 4.8 pg/mL (<58.9)
[2022-01-13] MEDS ORDERED: ASPIRIN 81 MG CHEWABLE TABLET ONE (08:45)
[2022-01-13] MEDS ORDERED: FOLIC ACID 5 MG/ML VIAL ONE (08:46)
--- NOTE | 2022-01-13 09:02 | RAD REPORT ---
EXAM DESCRIPTION: RAD - Chest Single View - 01/13/2022 8:34 am CLINICAL HISTORY: facial droop, Stroke protocol chest film COMPARISON: None TECHNIQUE: AP portable chest image was obtained 01/13/2022 8:34 am . FINDINGS: Lungs are clear. Heart and vasculature are normal. No measurable pleural effusion and no p neumothorax. No acute bony abnormality seen. No acute aortic findings suspected. IMPRESSION: No acute cardiopulmonary process.
[2022-01-13 09:04] LABS: SARS-CoV-2 Antigen Rapid Res Negative (Negative)
--- NOTE | 2022-01-13 09:51 | P.HP ---
Certification for Inpatient Patient admitted to: Observation With expected LOS: <2 Midnights Patient will require the following post-hospital care: None Practitioner: I am a practitioner with admitting privileges, knowledge of patient current condition, hospital course, and medical plan of care. Services: Services provided to patient in accordance with Admission requirements found in Title 42 Section 412.3 of the Code of Federal Regulations Patient History Date of Service: 01/13/22 Primary Care Provider: none Reason for admission: r/o TIA History of Present Illness: Ms. Gonzalez is a 56 yo F with no known past medical history who presents to the ED via EMS for right sided facial droop. She woke up at 6:30am and saw that her lips were drooping and her speech was slurred. She says this lasted for a few minutes. By the time EMS arrived, her symptoms resolved. This has never happened before. Asymptomatic, speech intact, and no acute neurological findings at bedside. She received folic acid and aspirin in the ED. CT Head without acute findings. Glucose 245. Patient's SBP elevated to the 160s. Patient denies history of hypertension and diabetes. She is a current smoker, 1 pack a week. No family history of stroke or [place]. Allergies No Known Drug Allergies Allergy (Unverified 10/03/14 15:48) Unknown - Past Medical/Surgical History Has patient received pneumonia vaccine in the past: No Diabetic: No Past Medical History: Patient denies medical history -: breast cyst removal -: c section - Family History Mother -: Hypertension - Social History Smoking Status: Current every day smoker Alcohol use: No CD- Drugs: No Caffeine use: No Place of Residence: Home Review of Systems General: Unremarkable Eyes: Unremarkable ENT: Unremarkable Respiratory: Unremarkable Cardiovascular: Unremarkable Gastrointestinal: Unremarkable Genitourinary: Unremarkable Musculoskeletal: Unremarkable Integumentary: Unremarkable Neurological: Weakness, Change in Speech Lymphatics: Unremarkable Physical Examination - Physical Exam General: Alert, In no apparent distress HEENT: Atraumatic, PERRLA, Mucous membr. moist/pink, EOMI Neck: Supple Respiratory: Clear to auscultation bilaterally, Normal air movement Cardiovascular: No edema, Regular rate/rhythm Gastrointestinal: Soft and benign, No tenderness Musculoskeletal: No tenderness Integumentary: No rashes Neurological: Normal speech, Normal strength at 5/5 x4 extr, Normal affect Lymphatics: No axilla or inguinal lymphadenopathy - Studies Laboratory Data (last 24 hrs) 01/13/22 08:03: PT 12.0, INR 1.09, APTT 27.1 01/13/22 08:03: WBC 7.40, Hgb 14.5, Hct 42.7, Plt Count 188 01/13/22 08:03: Sodium 138, Potassium 3.7, BUN 12, Creatinine 0.73, Glucose 245 H Assessment and Plan - Problems (Diagnosis) (1) Facial droop Current Visit: Yes Status: Resolved (2) Hyperglycemia Current Visit: Yes Status: Acute (3) Elevated blood pressure reading Current Visit: Yes Status: Acute (4) Smoker Current Visit: Yes Status: Acute - Plan - neurology consulted for TIA rule out - MRI stroke protocol pending, carotid US pending - speech therapy, PT/OT evaluation pending - A1c pending, sliding scale insulin, and accuchecks - lipid panel pending - allow for permissive hypertension, may need antihypertensives at discharge - daily statin, aspirin, and folic acid - smoking cessation counseling - DVT ppx - SCDs Discharge Plan: Home Plan to discharge in: 24 Hours - Advance Directives Does patient have a Living Will: No Does patient have a Durable POA for Healthcare: No - Code Status/Comfort Care Code Status Assessed: Yes (full code ) Critical Care: No Time Spent Managing Pts Care (In Minutes): 70
[2022-01-13] MEDS ORDERED: ONDANSETRON 4 MG/2 ML VIAL IV PRN (10:55)
[2022-01-13] MEDS ORDERED: ACETAMINOPHEN 500 MG TAB PO PRN (10:55)
[2022-01-13 11:22] VITALS: BMI 27.3
[2022-01-13] MEDS: INSULIN -REGULAR HUMAN 50 UNIT/0.5 ML ML SQ SCH ×3 (11:30→21:07)
[2022-01-13 11:35] LABS: Thyroid Stimulating Hormone 0.749 uIU/mL (0.360-3.740)
--- NOTE | 2022-01-13 11:55 | RAD REPORT ---
EXAM DESCRIPTION: - CP - 01/13/2022 11:34 am CLINICAL HISTORY: stroke workup COMPARISON: No comparisons TECHNIQUE: Real-time sonographic evaluation of bilateral carotid and vertebral systems was performed . Rico scale and Doppler interrogation were performed with waveform tracing bilaterally. FINDINGS: Normal high resistance waveforms are noted in both external carotid arteries. The common c arotid arteries and internal carotid arteries show normal low resistance waveforms. No significant plaque formation is seen. Peak systolic and end diastolic velocity values and the ICA/ CCA ratios are in the non-hemodynamically significant range. No dissection findings. Antegrade flow seen in both vertebral arteries. Velocity values and ratios were recorded and are retained in the patient's imaging records. IMPRESSION: No significant atherosclerotic changes noted. No evidence of a hemodynamically significant stenosis.
[2022-01-13] MEDS ORDERED: INFLUENZA VACCINE (for 6+ mo) 0.5 ML DOSE IMVAC ONE (12:00)
[2022-01-13 14:46] VITALS: O2SAT 99
--- NOTE | 2022-01-13 14:49 | RAD REPORT ---
EXAM DESCRIPTION: MRI - Brain W/Wo Cont - 01/13/2022 2:39 pm CLINICAL HISTORY: right sided facial droop, r/o stroke Headache, drowsiness, CVA symptomology COMPARISON: MRA Head Wo Cont dated 01/13/2022 TECHNIQUE: Multi-sequence, multiplanar MR imaging of the brain was performed with contrast. FINDINGS: No intracranial hemorrhage, hydrocephalus, or extra-axial fluid collection.Minimal periven tricular chronic microvascular ischemic changes. No edema or shift of midline structures. No intracra nial mass. DWI is negative for acute CVA. The midline structures are normally formed. Mastoid air cells and paranasal sinuses are clear. Post-contrast images show no abnormal enhancement to suggest tumor or infection. IMPRESSION: Negative for acute CVA or other acute intracranial process.
--- NOTE | 2022-01-13 14:52 | RAD REPORT ---
EXAM DESCRIPTION: MRI - MRA Head Wo Cont - 01/13/2022 2:39 pm CLINICAL HISTORY: right sided facial droop, r/o stroke CVA COMPARISON: Ct Stroke Brain Wo Cont dated 01/13/2022 FINDINGS: 3D noncontrast [id number] MR angiography of the mechoopda of [place] was performed. No aneurysm, flow-limiting stenosis or vascular malformation is seen. Forward flow seen in codominant vertebral arteries. The visualized dural venous sinuses appear patent. IMPRESSION: No significant flow abnormality of the mechoopda of [place] is identified.
--- NOTE | 2022-01-13 14:54 | RAD REPORT ---
EXAM DESCRIPTION: MRI - MRA Neck W/Wo Cont - 01/13/2022 2:39 pm CLINICAL HISTORY: right sided facial droop, r/o stroke Headache, drowsiness, CVA symptomology COMPARISON: No comparisons FINDINGS: Contrast enhance 2D [id number] MR angiography of the neck vessels was performed. 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 Both common carotid arteries are widely patent. Both internal carotid arteries are normal bilaterally without evidence of a significant stenosis. Codominant antegrade flow seen in both vertebral arteries. IMPRESSION: No significant flow abnormality of the neck vessels is identified.
[2022-01-13] MEDS ORDERED: ATORVASTATIN 40 MG TAB PO SCH (21:00)
[2022-01-14] MEDS: INSULIN -REGULAR HUMAN 50 UNIT/0.5 ML ML SQ SCH ×2 (07:30→09:38)
--- NOTE | 2022-01-14 08:27 | P.DS ---
Admission Date: 01/13/22 Discharge Date: 01/14/22 Primary Care Provider: none Disposition: ROUTINE DISCHARGE Discharge Condition: GOOD Reason for Admission: r/o TIA Vital Signs/Physical Exam: Temp Pulse Resp BP Pulse Ox 97.4 F 65 18 151/75 H 98 01/14/22 04:00 01/14/22 04:00 01/14/22 04:00 01/14/22 04:00 01/14/22 04:00 Laboratory Data at Discharge: WBC 7.40 K/uL (4.3-10.9) 01/13/22 08:03 Hgb 14.5 g/dL (12.0-15.0) 01/13/22 08:03 Hct 42.7 % (36.0-45.0) 01/13/22 08:03 Plt Count 188 K/uL (152-406) 01/13/22 08:03 PT 12.0 SECONDS (9.5-12.5) 01/13/22 08:03 INR 1.09 01/13/22 08:03 APTT 27.1 SECONDS (24.3-36.9) 01/13/22 08:03 Sodium 138 mmol/L (136-145) 01/13/22 08:03 Potassium 3.7 mmol/L (3.5-5.1) 01/13/22 08:03 BUN 12 mg/dL (7-18) 01/13/22 08:03 Creatinine 0.73 mg/dL (0.55-1.3) 01/13/22 08:03 Glucose 245 mg/dL (74-106) H 01/13/22 08:03 Triglycerides 57 mg/dL (<150) 01/13/22 08:03 Cholesterol 121 mg/dL (<200) 01/13/22 08:03 HDL Cholesterol 49 mg/dL (40-60) 01/13/22 08:03 Cholesterol/HDL Ratio 2.47 01/13/22 08:03 Home Medications: Aspirin [Aspirin EC 81 MG] 81 mg PO DAILY 30 Days #30 tab 01/14/22 Folic Acid 1 mg PO DAILY 30 Days #30 tab 01/14/22 Metformin HCl 500 mg PO BID 30 Days #60 tab 01/14/22 New Medications: Aspirin [Aspirin EC 81 MG] 81 mg PO DAILY 30 Days #30 tab Folic Acid 1 mg PO DAILY 30 Days #30 tab Metformin HCl 500 mg PO BID 30 Days #60 tab Physician Discharge Instructions: Patient presented with R facial droop and mild slurred speech, which resolved shortly after arrival. She was further evaluated by CT head, MRI and MRA head/neck, carotid dopplers, which were all negative for acute findings. Neurology was consulted. LDL was 61. Recommend aspirin and folic acid for her transient ischemic attack. She was also noted to be mildly hypertensive 140-150s systolic, and hyperglycemic: 180-280, HgbA1c: 10 Recommend starting on metformin, monitoring blood glucose levels, Diet, and 5- 10% weight loss. Patient will establish with a doctor, recommend follow up in ~ 1 week. Take home blood pressure readings and glucose log to review if any further adjustments are needed. Followup: NONE,NONE [Primary Care Provider] -
[2022-01-14] MEDS ORDERED: FOLIC ACID 1 MG TABLET PO SCH (09:00)
[2022-01-14] MEDS ORDERED: ASPIRIN EC 81 MG TAB PO SCH (09:00)
[2022-01-14 12:50] VITALS: BP 149/82; TEMP 97.4
--- NOTE | 2022-01-14 17:41 | EKG ---
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
== END 2022-01-14 12:00 | disposition home or self-care (01) ==
LOC: ER 07:32 → ERHOLD 09:11 → 4TH 12:32
PROVIDERS: ADMIT Hospitalist; ATTEND Hospitalist
DX: R29.810 Facial weakness (principal); R73.9 Hyperglycemia, unspecified; R03.0 Elevated blood-pressure reading, without diagnosis of hypertension; F17.210 Nicotine dependence, cigarettes, uncomplicated; Z20.822 Contact with and (suspected) exposure to COVID-19
CPT/HCPCS: 36415; 70450; 70544; 70549; 70553; 71045; 80048; 80061; 82947; 83036; 84439; 84443; 84484; 85025; 85610; 85730; 87811; 93005; 93880; 96374; 97161; 97165; 99285; A9577; G0378; J1815

== ENCOUNTER 2023-09-09 13:35 | Emergency (ER) | payer OTHER, SELFPAY ==
--- OUTSIDE RECORDS SUMMARY | 2023-09-09 13:38 | XMS REPORT | Continuity of Care Document ---
Author Name Unknown Address [address] [place] [address] Alex. [address] [place] [address] [email or web address] Address [address] [place] [address] Alex. [address] [place] [address] Care Team Providers Care Electronics Recycler Name Role Phone Terri Padron Primary Care Physician Medications Ordered Medication Name Filled Medication Name Start Date Stop Date Current Medication? Ordering Clinician Indication Dosage Frequency Signature (SIG) Comments Components Source lisinopril 5 mg tablet 07-27 00:00: 00 Yes 1mg Dallas Collins metformin 1,000 mg tablet 07-27 00:00: 00 Yes 1mg Dallas Collins atorvastati n 10 mg tablet 07-27 00:00: 00 Yes 1mg Dallas Collins lisinopril 5 mg tablet 07-12 00:00: 00 Yes 1mg Dallas Collins metformin 1,000 mg tablet 07-12 00:00: 00 Yes 1mg Dallas Collins INSTILL 4-6 DROPS INTO BOTH EARS EVERY 2-3 HOURS DAILY. 2022-02 00:00: 00 06-19 00:00 :00 No 2 Dallas Collins TAKE 1 TABLET DAILY. 2022-02 00:00: 00 06-19 00:00 :00 No 81 Dallas Collins TAKE 1 TABLET DAILY. 2022-02 00:00: 00 06-19 00:00 :00 No 5 Dallascelia Collins TAKE 1 TABLET TWICE DAILY. 2022-02 00:00: 00 06-19 00:00 :00 No 1000 Dallas Collins INSTILL 3-5 DROPS INTO AFFECTED EARS THREE TIMES DAILY FOR 7-10 DAYS 2022-02 00:00: 00 06-19 00:00 :00 No 12 Dallas Jane Collins TAKE 1 TABLET DAILY. 6-03 00:00: 00 06-19 00:00 :00 No 5 Dallascelia Collins TAKE 1 TABLET TWICE DAILY. 6-03 00:00: 00 06-19 00:00 :00 No 1000 Dallas Collins INSTILL 4 DROPS IN THE AFFECTED EAR(S) TWICE DAILY 6- 00:00: 00 06-19 00:00 :00 No 301 Dallascelia Collins TAKE 1 TABLET DAILY. 3-03 00:00: 00 06-19 00:00 :00 No 5 Dallasceila Collins TAKE 1 TABLET TWICE DAILY. 2-06 00:00: 00 06-19 00:00 :00 No 1000 Dallas Collins TAKE 1 TABLET DAILY. 2-03 00:00: 00 06-19 00:00 :00 No 5 Dallas Collins TAKE 1 TABLET DAILY. 2- 00:00: 00 06-19 00:00 :00 No 81 Dallas Collins TAKE 1 TABLET BY MOUTH TWICE A DAY 2021-02 00:00: 00 Yes Dallas Collins TAKE 1 TABLET BY MOUTH EVERY DAY 2021-02 00:00: 00 Yes Dallas Collins Vital Signs Vital Name Observation Time Observation Value Comments S ource BP Systolic 2023-07-28 14:12:00 135 mm[Hg] Step hen Jane Collins BP Diastolic 2023-07-28 14:12:00 70 mm[Hg] Alex phen F Dennis Weight Measured 2023-07-28 14:12:00 158.00 pounds Dallas Collins Height Measured 2023-07-28 14:12:00 62.00 inches Dallas Collins Body Temperature 2023-07-28 14:12:00 98.00 degrees Dallas Collins Heart Rate 2023-07-28 14:12:00 73.00 /min Sandy en F Dennis Respiratory Rate 2023-07-28 14:12:00 18.00 /min Dallascelia Collins BP Systolic 2022-12-23 08:06:00 178 mm[Hg] Step hen Jane Collins BP Diastolic 2022-12-23 08:06:00 91 mm[Hg] Alex phen F Dennis Weight Measured 2022-12-23 08:06:00 146.60 pounds Dallas F Dennis Height Measured 2022-12-23 08:06:00 62.00 inches Dallas F Dennis Body Temperature 2022-12-23 08:06:00 98.20 degrees Dallas F Dennis Heart Rate 2022-12-23 08:06:00 55.00 /min Sandy en F Dennis Respiratory Rate 2022-12-23 08:06:00 Dallas F Dennis BP Systolic 2022-07-09 14:36:00 161 mm[Hg] Step hen F Dennis BP Diastolic 2022-07-09 14:36:00 94 mm[Hg] Alex phen F Dennis Weight Measured 2022-07-09 14:36:00 140.80 pounds Dallas F Dennis Height Measured 2022-07-09 14:36:00 62.00 inches Dallas F Dennis Body Temperature 2022-07-09 14:36:00 98.20 degrees Dallas F Dennis Heart Rate 2022-07-09 14:36:00 70.00 /min Sandy en F Dennis Respiratory Rate 2022-07-09 14:36:00 Dallas F Dennis BP Systolic 2022-03-11 09:37:00 150 mm[Hg] Step hen F Dennis BP Diastolic 2022-03-11 09:37:00 80 mm[Hg] Alex phen F Dennis Weight Measured 2022-03-11 09:37:00 150.20 pounds Dallas F Dennis Height Measured 2022-03-11 09:37:00 62.00 inches Dallas F Dennis Body Temperature 2022-03-11 09:37:00 98.30 degrees Dallas F Dennis Heart Rate 2022-03-11 09:37:00 86.00 /min Sandy en F Dennis Respiratory Rate 2022-03-11 09:37:00 18.00 /min Dallas F Dennis Encounters Start Date/Time End Date/Time Encounter Type Admission Type Attending [facility] Care Department Encounter ID Source 2023-07-28 14:12:29 2023-07-28 14:12:29 Outpatient [facility] [id number] Dallas F Dennis 2023-07-28 00:00:00 2023-07-28 00:00:00 Outpatient Visit [facility] [id number] Dallas Collins 2023-03-24 08:13:33 2023-03-24 08:13:33 Outpatient [place] [id number] Dallas Collins 2023-03-23 10:21:20 2023-03-23 10:21:20 Outpatient [facility] [id number] Dallas Collins 2022-12-23 07:59:23 2022-12-23 07:59:23 Outpatient [place] [id number] Dallas Collins 2022-07-09 14:28:13 2022-07-09 14:28:13 Outpatient [facility] [id number] Dallas Collins 2022-03-11 09:32:16 2022-03-11 09:32:16 Outpatient [facility] [id number] Dallas Collins 2022-02-23 13:16:20 2022-02-23 13:16:20 Outpatient [facility] [id number] Dallas Collins Results Test Description Test Time Test Comments Results Result Co mments Source COMPREHENSIVE METABOLIC [id number] 06:20:03* Test Item Value Reference Range Interpretation Comme nts GLUCOSE (test code = 2217) 103 MG/DL 70-99 H BUN (test code = 2208) 10 MG/DL 6-20 CREATININE (test code = 2214) 0.71 MG/DL 0.60-1.30 eGFR (2020 CKD-EPI) (test co de = 28787) 98 ML/MIN/1.73 >60 CALC BUN/CREAT (test code = 2235) 14 RATIO 6-28 SODIUM (test code = 2231) 141 MEQ/L 133-146 POTASSIUM (test code = 2228) 3.9 MEQ/L 3.5-5.4 CHLORIDE (test code = 2215) 104 MEQ/L 95-107 CARBON DIOXIDE (test code = 2206) 20 MEQ/L 19-31 CALCIUM (test code = 2209) 9.8 MG/DL 8.5-10.5 PROTEIN, TOTAL (test code = 2229) 7.9 G/DL 6.1-8.3 ALBUMIN (test code = 2201) 4.8 G/DL 3.5-5.2 CALC GLOBULIN (test code = 2240) 3.1 G/DL 1.9-3.7 CALC A/G RATIO (test code = 2234) 1.5 RATIO 1.0-2.6 BILIRUBIN, TOTAL (test code = 2207) 0.4 MG/DL <=1.2 ALKALINE PHOSPHATASE (test code = 2204) 88 U/L 40-136 AST (test code = 2218) 11 U/L 9-40 ALT (test code = 2219) 16 U/L 5-40 ALBUMIN/CREATININE RATIO, URINE, [id number] 04:18:39* Test Item Value Reference Range Interpretation Comme nts CREATININE, URINE, CONC. (test code = 2072) 166.2 MG/DL NOT ESTAB ALBUMIN, URINE, RANDOM (test code = 33655) 9.3 MG/DL NOT ESTAB CALC ALBUMIN/CREAT, RND (test code = 15550) 56 MG/G <30 H Note: Albumin/Cr eatinine ratio reference interval reflects ADA and NKF guidelines. UNLESS OTHERWISE INDICATED, ALL TESTING PERFORMED AT [facility] [address] [place] [address] MAINTENANCE JOB TITLES: JED CARR M.D. CLIA NUMBER [id number] [facility] [place]. [id number] HEMOGLOBIN [id number] 02:29:01* Test Item Value Reference Range Interpretation Comme nts HEMOGLOBIN A1c (test code = 47068) 6.9 % 4.2-5.6 H [employer] DIAB[employer] S [employer]IATION GUIDELINES FOR HGB A1C: PREDIABETES/INCREASED RISK . . . . . . . 5.7-6.4% DIAGNOSIS OF DIABETES . . . . . . . . . >=6.5% WITH CONFIRMATION OR APPROPRIATE SYMPTOMS NOTE: ASSAY MAY BE AFFECTED BY HEMOGLOBINOPATHIES (SICKLE CELL ANEMIA, S-C DISEASE, OTHERS) OR ARTIFICIALLY LOWERED BY DECREASED RED CELL SURVIVAL (HEMOLYTIC ANEMIAS, BLOOD LOSS, ETC.). CONSIDER ALTERNATE TESTING OR LABORATORY CONSULTATION. HEMOGLOBIN [id number] 00:00:00* Test Item Value Reference Range Interpretation Comme nts HEMOGLOBIN A1c (test code = 72568) 6.9 % Dallas CollinsLIPID [id number] 00:00:00* Test Item Value Reference Range Interpretation Comme nts CHOLESTEROL (test code = 2210) 153 MG/DL TRIGLYCERIDES (test code = 2232) 68 MG/DL HDL CHOLESTEROL (test code = 2220) 66 MG/DL CALC LDL CHOL (test code = 2237) 73 MG/DL RISK RATIO LDL/HDL (test cod e = 2238) 1.11 RATIO Dallas CollinsCOMPREHENSIVE METABOLIC [id number] 00:00:00* Test Item Value Reference Range Interpretation Comme nts GLUCOSE (test code = 2217) 103 MG/DL BUN (test code = 2208) 10 MG/DL CREATININE (test code = 2214) 0.71 MG/DL eGFR (2020 CKD-EPI) (test co de = 54325) 98 ML/MIN/1.73 CALC BUN/CREAT (test code = 2235) 14 RATIO SODIUM (test code = 2231) 141 MEQ/L POTASSIUM (test code = 2228) 3.9 MEQ/L CHLORIDE (test code = 2215) 104 MEQ/L CARBON DIOXIDE (test code = 2206) 20 MEQ/L CALCIUM (test code = 2209) 9.8 MG/DL PROTEIN, TOTAL (test code = 2229) 7.9 G/DL ALBUMIN (test code = 2201) 4.8 G/DL CALC GLOBULIN (test code = 2240) 3.1 G/DL CALC A/G RATIO (test code = 2234) 1.5 RATIO BILIRUBIN, TOTAL (test code = 2207) 0.4 MG/DL ALKALINE PHOSPHATASE (test code = 2204) 88 U/L AST (test code = 2218) 11 U/L ALT (test code = 2219) 16 U/L Dallas Lara AustinALBUMIN/CREATININE RATIO, RANDOM [id number] 00:00:00* Test Item Value Reference Range Interpretation Comme nts CREATININE, URINE, CONC. (te st code = 2072) 166.2 MG/DL ALBUMIN, URINE, RANDOM (test code = 51154) 9.3 MG/DL CALC ALBUMIN/CREAT, RND (julio c t code = 13096) 56 MG/G Dallas CollinsLIPID [id number] 05:32:04* Test Item Value Reference Range Interpretation Comme nts CHOLESTEROL (test code = 2210) 161 MG/DL <200 TRIGLYCERIDES (test code = 2232) 90 MG/DL <150 HDL CHOLESTEROL (test code = 2220) 68 MG/DL >39 CALC LDL CHOL (test code = 2237) 76 MG/DL <100 NOTE: CALCULATED LDL IS BASED ON RACHEL-DALE METHOD WHICHINCLUDES ADJUSTABLE TRIGLYCERIDE:VLDL CHOLESTEROL RATIO.THIS FACTOR VARIES BY MEASURED TRIGLYCERIDE AND NON-HDLCHOLESTEROL CONCENTRATIONS WITH INCREASED CALCULATED LDL SEENIN HIGHER TRIGLYCERIDE OR LOWER NON-HDL SPECIMENS. FOR MOREINFORMATION, SEE CLIENT ANNOUNCEMENT AT [email or web address] RISK RATIO LDL/HDL (test code = 2238) 1.12 RATIO <3.22 UNLESS OTHERW ISE INDICATED, ALL TESTING PERFORMED AT [facility] [address] [place] [address] MAINTENANCE JOB TITLES: Erica ALVESIA NUMBER [id number] [facility] [place]. [id number] HEMOGLOBIN [id number] 02:25:10* Test Item Value Reference Range Interpretation Comme nts HEMOGLOBIN A1c (test code = 34372) 6.3 % 4.2-5.6 H [employer] DIAB[employer] S ASSOCIATION GUIDELINES FOR HGB A1C: PREDIABETES/INCREASED RISK . . . . . . . 5.7-6.4% DIAGNOSIS OF DIABETES . . . . . . . . . >=6.5% WITH CONFIRMATION OR APPROPRIATE SYMPTOMS NOTE: ASSAY MAY BE AFFECTED BY HEMOGLOBINOPATHIES (SICKLE CELL ANEMIA, S-C DISEASE, OTHERS) OR ARTIFICIALLY LOWERED BY DECREASED RED CELL SURVIVAL (HEMOLYTIC ANEMIAS, BLOOD LOSS, ETC.). CONSIDER ALTERNATE TESTING OR LABORATORY CONSULTATION. HEMOGLOBIN [id number] 00:00:00* Test Item Value Reference Range Interpretation Comme nts HEMOGLOBIN A1c (test code = 54460) 6.3 % Dallas Lara AustinLIPID [id number] 00:00:00* Test Item Value Reference Range Interpretation Comme nts CHOLESTEROL (test code = 2210) 161 MG/DL TRIGLYCERIDES (test code = 2232) 90 MG/DL HDL CHOLESTEROL (test code = 2220) 68 MG/DL CALC LDL CHOL (test code = 2237) 76 MG/DL RISK RATIO LDL/HDL (test cod e = 2238) 1.12 RATIO Dallas CollinsCOMPREHENSIVE METABOLIC [id number] 06:54:14* Test Item Value Reference Range Interpretation Comme nts GLUCOSE (test code = 2216) 112 MG/DL 70-99 H BUN (test code = 2207) 12 MG/DL 6-20 CREATININE (test code = 2213) 0.61 MG/DL 0.60-1.30 eGFR (2020 CKD-EPI) (test code = ) 104 ML/MIN/1.73 >60 CALC BUN/CREAT (test code = 2234) 20 RATIO 6-28 SODIUM (test code = 2230) 142 MEQ/L 133-146 POTASSIUM (test code = 2227) 4.1 MEQ/L 3.5-5.4 CHLORIDE (test code = 2214) 106 MEQ/L 95-107 CARBON DIOXIDE (test code = 2205) 22 MEQ/L 19-31 CALCIUM (test code = 2208) 9.7 MG/DL 8.5-10.5 PROTEIN, TOTAL (test code = 2228) 7.3 G/DL 6.1-8.3 ALBUMIN (test code = 2200) 5.0 G/DL 3.5-5.2 CALC GLOBULIN (test code = 2239) 2.3 G/DL 1.9-3.7 CALC A/G RATIO (test code = 2233) 2.2 RATIO 1.0-2.6 BILIRUBIN, TOTAL (test code = 2206) 0.5 MG/DL See_Comment [Automated me ssage] The system which generated this result transmitted reference range: <=1.2. The reference range was not used to interpret this result as normal/abnormal. ALKALINE PHOSPHATASE (test code = 2203) 76 U/L 40-136 AST (test code = 2217) 10 U/L 9-40 ALT (test code = 2218) 15 U/L 5-40 LIPID [id number] 06:54:14* Test Item Value Reference Range Interpretation Comme nts CHOLESTEROL (test code = 2209) 144 MG/DL <200 TRIGLYCERIDES (test code = 2232) 53 MG/DL <150 HDL CHOLESTEROL (test code = 2219) 61 MG/DL >39 CALC LDL CHOL (test code = 2236) 70 MG/DL <100 NOTE: CALCULATED LDL IS BASED ON RACHEL-DALE METHOD WHICHINCLUDES ADJUSTABLE TRIGLYCERIDE:VLDL CHOLESTEROL RATIO.THIS FACTOR VARIES BY MEASURED TRIGLYCERIDE AND NON-HDLCHOLESTEROL CONCENTRATIONS WITH INCREASED CALCULATED LDL SEENIN HIGHER TRIGLYCERIDE OR LOWER NON-HDL SPECIMENS. FOR MOREINFORMATION, SEE CLIENT ANNOUNCEMENT AT [email or web address] [email or web address] RATIO LDL/HDL (test code = 2238) 1.15 RATIO <3.22 [facility] has i mportant pathology staff changes effective 04/06/2022. New pathology staff will provide uninterrupted, excellent patient care and clinical consultation. See URL: [email or web address]. UNLESS OTHERWISE INDICATED, ALL TESTING PERFORMED AT [facility] [address] [place] [address] CLIA: [id number], CAP: [id number] CBC W/AUTO DIFF WITH [id number] 03:32:22* Test Item Value Reference Range Interpretation Comme nts WBC (test code = 1001) 7.7 K/UL 3.5-11.0 RBC (test code = 1002) 4.66 M/UL 3.80-5.40 HEMOGLOBIN (test code = 1003) 14.1 G/DL 11.5-15.5 HEMATOCRIT (test code = 1004) 40.3 % 34.0-45.0 MCV (test code = 1005) 86.5 fL 80.0-99.0 MCH (test code = 1006) 30.3 PG 25.0-33.0 MCHC (test code = 1007) 35.0 G/DL 31.0-36.0 RDW (test code = 1038) 13.0 % 11.5-15.0 NEUTROPHILS (test code = 1008) 66.7 % LYMPHOCYTES (test code = 1010) 24.8 % MONOCYTES (test code = 1011) 6.6 % EOSINOPHILS (test code = 1012) 0.9 % BASOPHILS (test code = 1013) 0.7 % IMMATURE GRANULOCYTES (test code = 1036) 0.3 % NUCLEATED RBCS (test code = 1065) 0.0 /100 WBC'S See_Comment [Automated Bra[employer] ge] The system which generated this result transmitted reference range: 0.0. The reference range was not used to interpret this result as normal/abnormal. PLATELET COUNT (test code = 1015) 201 K/UL 130-400 ABSOLUTE NEUTROPHILS (test code = 1066) 5.13 K/UL 1.50-7.50 ABSOLUTE LYMPHOCYTES (test code = 1067) 1.91 K/UL 1.00-4.00 ABSOLUTE MONOCYTES (test code = 1068) 0.51 K/UL 0.20-1.00 ABSOLUTE EOSINOPHILS (test code = 1040) 0.07 K/UL 0.00-0.50 ABSOLUTE BASOPHILS (test code = 1069) 0.05 K/UL 0.00-0.20 ABS IMMATURE GRANULOCYTES (test code = 1020) 0.02 K/UL 0.00-0.10 ABS NUCLEATED RBCS (test code = 15427) 0.00 K/UL 0.00-0.11 HEMOGLOBIN [id number] 03:20:54* Test Item Value Reference Range Interpretation Comme [facility] HEMOGLOBIN A1c (test code = 14814) 7.7 % 4.2-5.6 H [employer] DIAB[employer] S ASSOCIATION GUIDELINES FOR HGB A1C: PREDIABETES/INCREASED RISK . . . . . . . 5.7-6.4% DIAGNOSIS OF DIABETES . . . . . . . . . >=6.5% WITH CONFIRMATION OR APPROPRIATE SYMPTOMS NOTE: ASSAY MAY BE AFFECTED BY HEMOGLOBINOPATHIES (SICKLE CELL ANEMIA, S-C DISEASE, OTHERS) OR ARTIFICIALLY LOWERED BY DECREASED RED CELL SURVIVAL (HEMOLYTIC ANEMIAS, BLOOD LOSS, ETC.). CONSIDER ALTERNATE TESTING OR LABORATORY CONSULTATION. COMPREHENSIVE METABOLIC [id number] 00:00:00* Test Item Value Reference Range Interpretation Comme nts GLUCOSE (test code = 2217) 112 MG/DL BUN (test code = 2208) 12 MG/DL CREATININE (test code = 2214) 0.61 MG/DL eGFR (2020 CKD-EPI) (test code = 63935) 104 ML/MIN/1.73 CALC BUN/CREAT (test code = 2235) 20 RATIO SODIUM (test code = 2231) 142 MEQ/L POTASSIUM (test code = 2228) 4.1 MEQ/L CHLORIDE (test code = 2215) 106 MEQ/L CARBON DIOXIDE (test code = 2206) 22 MEQ/L CALCIUM (test code = 2209) 9.7 MG/DL PROTEIN, TOTAL (test code = 2229) 7.3 G/DL ALBUMIN (test code = 2201) 5.0 G/DL CALC GLOBULIN (test code = 2240) 2.3 G/DL CALC A/G RATIO (test code = 2234) 2.2 RATIO BILIRUBIN, TOTAL (test code = 2207) 0.5 MG/DL ALKALINE PHOSPHATASE (test code = 2204) 76 U/L AST (test code = 2218) 10 U/L ALT (test code = 2219) 15 U/L Dallas CollinsHEMOGLOBIN [id number] 00:00:00* Test Item Value Reference Range Interpretation Comme nts HEMOGLOBIN A1c (test code = 94535) 7.7 % Dallas CollinsCBC W/AUTO [id number] 00:00:00* Test Item Value Reference Range Interpretation Comme nts WBC (test code = 1001) 7.7 K/UL RBC (test code = 1002) 4.66 M/UL HEMOGLOBIN (test code = 1003) 14.1 G/DL HEMATOCRIT (test code = 1004) 40.3 % MCV (test code = 1005) 86.5 fL MCH (test code = 1006) 30.3 PG MCHC (test code = 1007) 35.0 G/DL RDW (test code = 1038) 13.0 % NEUTROPHILS (test code = 1008) 66.7 % LYMPHOCYTES (test code = 1010) 24.8 % MONOCYTES (test code = 1011) 6.6 % EOSINOPHILS (test code = 1012) 0.9 % BASOPHILS (test code = 1013) 0.7 % IMMATURE GRANULOCYTES (test code = 1036) 0.3 % NUCLEATED RBCS (test code = 1065) 0.0 /100WBC'S PLATELET COUNT (test code = 1015) 201 K/UL ABSOLUTE NEUTROPHILS (test c ode = 1066) 5.13 K/UL ABSOLUTE LYMPHOCYTES (test c ode = 1067) 1.91 K/UL ABSOLUTE MONOCYTES (test cod e = 1068) 0.51 K/UL ABSOLUTE EOSINOPHILS (test c ode = 1040) 0.07 K/UL ABSOLUTE BASOPHILS (test cod e = 1069) 0.05 K/UL ABS IMMATURE GRANULOCYTES (t est code = 1020) 0.02 K/UL ABS NUCLEATED RBCS (test cod e = 90299) 0.00 K/UL [place] CollinsLIPID [id number] 00:00:00* Test Item Value Reference Range Interpretation Comme nts CHOLESTEROL (test code = 2210) 144 MG/DL TRIGLYCERIDES (test code = 2232) 53 MG/DL HDL CHOLESTEROL (test code = 2220) 61 MG/DL CALC LDL CHOL (test code = 2237) 70 MG/DL RISK RATIO LDL/HDL (test cod e = 2238) 1.15 RATIO [place] Notes Date/Time Note Provider Source [place] [facility]
--- NOTE | 2023-09-09 14:06 | EDPHYS ---
Physician Documentation [facility] Name: Linda Gonzalez Age: 57 yrs Sex: Female : 1965 Arrival Date: 09/09/2023 Time: 13:35 Bed 12 Private MD: ED Physician Elvis Godinez HPI: 09/08 14:05 This 57 yrs old Female presents to ER via Ambulatory with complaints of jh7 Toothache, Facial Swelling. 14:05 57-year-old female with a past medical history of controlled type 2 diabetes on jh7 metformin presents to the ER for dental abscess. The patient reports that she has a broken premolar and that she noticed left lower facial swelling. Denies fever. Reports that she is in the process of scheduling an appointment with a dentist.. Historical: - Allergies: 14:14 No Known Allergies; nj1 - PMHx: 14:14 Diabetes mellitus; Hypertensive disorder; nj1 - Immunization history:: Client reports having NOT received the Covid vaccine. - Infectious Disease History:: Denies. - Social history:: Smoking status: Patient denies any tobacco usage or history of. ROS: 14:05 Constitutional: Per HPI jh7 Exam: 14:05 Constitutional: This is a well developed, well nourished patient who is awake, alert, jh7 and in no acute distress. Cardiovascular: Regular rate and rhythm with a normal S1 and S2. No gallops, murmurs, or rubs. Normal PMI, no JVD. No pulse deficits. Respiratory: Lungs have equal breath sounds bilaterally, clear to auscultation and percussion. No rales, rhonchi or wheezes noted. No increased work of breathing, no retractions or nasal flaring. Abdomen/GI: Soft, non-tender, with normal bowel sounds. No distension or tympany. No guarding or rebound. No evidence of tenderness throughout. Skin: Warm, dry with normal turgor. Normal color with no rashes, no lesions, and no evidence of cellulitis. MS/ Extremity: Pulses equal, no cyanosis. Neurovascular intact. Full, normal range of motion. Neuro: Awake and alert, GCS 15, oriented to person, place, time, and situation. Cranial nerves II-XII grossly intact. Motor strength 5/5 in all extremities. Sensory grossly intact. Cerebellar exam normal. Normal gait. 14:05 Head/face: Noted is swelling, that is moderate, of the left jaw, 14:05 ENT: Mouth: abscess, that is moderate, of the lower left first bicuspid, Vital Signs: 14:05 BP 158 / 82; Pulse 77; Resp 18; Temp 98.9(O); Pulse Ox 98% on R/A; Weight 68.04 kg; nj1 Height 5 ft. 2 in. ; Pain 7/10; 14:05 Body Mass Index 27.44 (68.04 kg, 157.48 cm) [facility] [place] 14:05 Pain Scale: Adult nj MDM: 13:38 Patient medically screened. [facility] 14:00 Differential diagnosis: dental caries, gingivitis, dental abscess. Data reviewed: vital [facility] signs, nurses notes. I considered the following discharge prescriptions or medication management in the emergency department Medications were administered in the Emergency Department. See MAR. Care significantly affected by the following chronic conditions: Diabetes, Hypertension. Counseling: I had a detailed discussion with the patient and/or guardian regarding the historical points, exam findings, and any diagnostic results supporting the discharge/admit diagnosis, the need for outpatient follow up, a dentist, to return to the emergency department if symptoms worsen or persist or if there are any questions or concerns that arise at home. Response to treatment: the patient's symptoms have mildly improved after treatment. Administered Medications: No medications were administered Disposition: 14:44 Co-signature as Attending Physician, Elvis Godinez MD I reviewed the patient's care rt provided by the Advanced Practice Provider and agree with the diagnosis and treatment plan. Disposition Summary: 09/09/23 14:06 Discharge Ordered Notes: Location: Home [facility] Problem: new [facility] Symptoms: are unchanged [facility] Condition: Stable [facility] Diagnosis - Periapical abscess without sinus [facility] Followup: [facility] - With: Private Physician - When: 2 - 3 days - Reason: Recheck today's complaints Discharge Instructions: - Discharge Summary Sheet [facility] - Dental Abscess [facility] Forms: - Medication Reconciliation Form [facility] - Antibiotic Education [facility] - Prescription Opioid Use [facility] - Patient Portal Instructions [facility] - Leadership Thank You Letter [facility] Prescriptions: - acetaminophen-codeine 300-15 mg Oral tablet - take 1 tablet ORAL route every 6 hours As needed as needed for pain; 30 tablet; [facility] Refills: 0, Product Selection Permitted - Augmentin 875-125 mg Oral Tablet - take 1 tablet ORAL route every 12 hours for 10 days; 20 tablet; Refills: 0, jh7 Product Selection Permitted Signatures: Annabel Christopher, [employer] jh7 Elvis Godinez MD MD rt Sumi Alan, RN RN nj1
[2023-09-09] MEDS ORDERED: HYDROCODONE/APAP 10/325 TAB ONE (14:36)
--- NOTE | 2023-09-09 14:40 | ER ---
Nurse's Notes [facility] Name: Linda Gonzalez Age: 57 yrs Sex: Female : 1965 Arrival Date: 09/09/2023 Time: 13:35 Bed 12 Private MD: Diagnosis: Periapical abscess without sinus Presentation: 09/08 14:05 Chief complaint: Patient states: Left lower bottom toothache for 2 days, swelling that nj1 has worsen. 14:05 Coronavirus screen: Vaccine status: Patient reports being unvaccinated. Ebola Screen: nj1 Patient denies travel to an Ebola-affected area in the 21 days before illness onset. Initial Sepsis Screen: Does the patient meet any 2 criteria? No. Patient's initial sepsis screen is negative. Does the patient have a suspected source of infection? No. Patient's initial sepsis screen is negative. Risk Assessment: Do you want to hurt yourself or someone else? Patient reports no desire to harm self or others. Onset of symptoms was September 07, 2023. 14:05 Method Of Arrival: Ambulatory [facility] 14:05 Acuity: EDSON 5 nj Historical: - Allergies: 14:14 No Known Allergies; nj1 - PMHx: 14:14 Diabetes mellitus; Hypertensive disorder; nj1 - Immunization history:: Client reports having NOT received the Covid vaccine. - Infectious Disease History:: Denies. - Social history:: Smoking status: Patient denies any tobacco usage or history of. Screenin:20 [facility] ED Fall Risk Assessment (Adult) History of falling in the last 3 months, [facility] including since admission No falls in past 3 months (0 pts) Confusion or Disorientation No (0 pts) Intoxicated or Sedated No (0 pts) Impaired Gait No (0 pts) Mobility Assist Device Used No (0 pt) Altered Elimination No (0 pt) Score/Fall Risk Level 0 - 2 = Low Risk Oriented to surroundings, Maintained a safe environment, Hourly rounding (assess needs \T\ fall precautionary measures) done. Abuse screen: Denies threats or abuse. Denies injuries from another. Nutritional screening: No deficits noted. Tuberculosis screening: No symptoms or risk factors identified. Assessment: 14:17 General: Appears in no apparent distress. uncomfortable, Behavior is calm, cooperative, nj1 appropriate for age. Pain: Complains of pain in tooth Quality of pain is described as aching. Neuro: Level of Consciousness is awake, alert, obeys commands, Oriented to person, place, time, situation. Cardiovascular: Patient's skin is warm and dry. Respiratory: Airway is patent Respiratory effort is even, unlabored. EENT: Reports Toothache, left lower. 14:39 Reassessment: Patient is alert, oriented x 3, equal unlabored respirations, skin aa5 warm/dry/pink. Vital Signs: 14:05 BP 158 / 82; Pulse 77; Resp 18; Temp 98.9(O); Pulse Ox 98% on R/A; Weight 68.04 kg; nj1 Height 5 ft. 2 in. ; Pain 7/10; 14:05 Body Mass Index 27.44 (68.04 kg, 157.48 cm) [facility] 14:05 Pain Scale: Adult [facility] ED Course: 13:37 Patient arrived in ED. 3 13:38 Annabel Crhistopher FNP [facility] 13:38 Elvis Godinez MD is Attending Physician. [facility] 14:14 Triage completed. [facility] 14:16 Arm band placed on. [facility] 14:21 Patient has correct armband on for positive identification. Bed in low position. Call [facility] light in reach. Provided Education on: call light, fall precautions. 14:39 No provider procedures requiring assistance completed. Patient did not have IV access aa5 during this emergency room visit. Administered Medications: No medications were administered Medication: 14:39 VIS not applicable for this client. aa5 Outcome: 14:06 Discharge ordered by . [facility] 14:39 Discharged to home ambulatory, aa5 14:39 Condition: stable 14:39 Discharge instructions given to patient, Instructed on discharge instructions, follow up and referral plans. medication usage, Demonstrated understanding of instructions, follow-up care, medications, 14:40 Patient left the ED. aa5 Signatures: Agnes Anguiano RN RN 5 Annabel Christopher FNP [employer] [facility] Sumi Alan RN RN pr1 Ursula Sprague ra3
[2023-09-09 14:44] VITALS: BP 158/82; TEMP 98.9; O2SAT 98
== END 2023-09-09 14:40 | disposition home or self-care (01) ==
LOC: ER 13:35
DX: K04.7 Periapical abscess without sinus (principal)
CPT/HCPCS: 99282